=== PATIENT | female | born 1975 | race Caucasian/White ===

== ENCOUNTER → 2016-12-27 | Outpatient (CLI) | payer OTHER, BC ==
[~2016-12-27] MED LIST: BUSP5TAB3 PO; HYDR-4246 PO; INSU100V12 SQ; INSU100V27 SQ; METH-310 PO; TOBR5DRO48 OP
--- NOTE | 2016-12-27 14:27 | DI ---
EXAM: FOOT RIGHT 3 VIEWS DATE: 12/27/2016 12:00 AM ENCOUNTER: Subsequent INDICATION: ITS.REASON: S92.301D Fracture of unspecified metatarsal bone(s), right foot, COMPARISON: Right ankle radiographs 12/16/2016 TECHNIQUE: 3 views of the foot were obtained. FINDINGS: Bony mineralization is normal. Redemonstration and grossly unchanged radiographic appearance and alignment of the avulsion fracture of the fifth metatarsal base allowing for differences in technique. Degenerative arthrosis of the interphalangeal joints. The Lisfranc joint is congruent. No focal radiographically apparent soft tissue swelling seen. No radiopaque foreign body. Calcaneal enthesophytes noted. IMPRESSION: Allowing for differences in technique between the prior ankle examination and current foot examination, grossly unchanged radiographic appearance of the avulsion fracture of the fifth metatarsal base. .
== END ==
LOC: IMA 13:38
PROVIDERS: ATTEND Family Medicine Sports Medicine
DX: S92.301D Fracture of unspecified metatarsal bone(s), right foot, subsequent encounter for fracture with routine healing (principal); V49.60XD Unspecified car occupant injured in collision with unspecified motor vehicles in traffic accident, subsequent encounter